=== PATIENT | female | born 1990 | race Hispanic/Latino ===

== ENCOUNTER 2021-11-08 22:31 | Emergency (ER) | payer OTHER ==
[~2021-11-08] VITALS: Ht 160 cm; Wt 106.1 kg
[2021-11-08] MEDS ORDERED: OMEPRAZOLE20 M2 PO (22:47)
[2021-11-08 23:50] VITALS: BP 126/72
== END 2021-11-08 23:50 | disposition home or self-care (01) ==
LOC: FSED 22:38
DX: R07.89 Other chest pain (principal); K29.70 Gastritis, unspecified, without bleeding; R10.13 Epigastric pain; I10 Essential (primary) hypertension; F41.9 Anxiety disorder, unspecified; E78.00 Pure hypercholesterolemia, unspecified
CPT/HCPCS: 71046; 80053; 81003; 81025; 84484; 85025; 85379; 93005; 99283